=== PATIENT | male | born 1950 | race Caucasian/White ===

== ENCOUNTER 2024-07-31 06:47 | Day surgery (SDC) | payer OTHER ==
--- NOTE | 2024-07-19 10:45 | RAD REPORT ---
EXAMINATION: TWO VIEW CHEST XR CLINICAL INDICATION: Pre-op pending carpal tunnel release TECHNIQUE: 2 views of the chest was performed. COMPARISON: 03/16/2016 FINDINGS: The lungs are well inflated and clear. The heart is upper limit of normal in size. No displaced fract ures evident.
== END 2024-07-31 07:23 | disposition home or self-care (01) ==
LOC: OR 06:47
PROVIDERS: ATTEND Orthopaedic Surgery Sports Medicine
DX: G56.01 Carpal tunnel syndrome, right upper limb (principal); Z53.09 Procedure and treatment not carried out because of other contraindication
CPT/HCPCS: 71046

== ENCOUNTER 2024-11-27 06:52 | Day surgery (SDC) | payer OTHER ==
[2024-11-25 10:25] LABS: Absolute Lymphocytes (CBC) 1.3 K/uL (0.7-4.9); Hematocrit 48.3 % (39.6-49.0); Hemoglobin 16.8 g/dL (13.6-17.9); MCH 31.1 pg (27.0-35.0); MCHC 34.7 g/dL (32.0-36.0); MCV 89.5 fL (80-100); MPV 7.5 fL (7.6-11.3); Nucleated RBC Absolute Count 0.0 (0-0); Nucleated Red Blood Cells % 0.0 % (0-0); RBC Red Blood Cell Count 5.39 M/uL (4.33-5.43); White Blood Count 6.10 thou/uL (4.3-10.9)
[2024-11-25 10:35] LABS: PT Prothrombin Time 10.9 SECONDS (10-13.0); PTT, Activated Partial Thromb 29.4 SECONDS (27.2-37.4); Protime INR 0.96
[2024-11-25 10:44] LABS: Anion Gap 6.4 mEq/L (5.0-15.0); BUN Blood Urea Nitrogen 18.0 mg/dL (7-18); Glucose Level 98.0 mg/dL (74-106); Potassium 4.4 mEq/L (3.5-5.1)
[2024-11-27] MEDS ORDERED: MIDAZOLAM HCL 2 MG/2 ML INJ ONE (07:16)
[2024-11-27] MEDS ORDERED: FENTANYL CITR 100 MCG/2 ML ONE (07:16)
[2024-11-27] MEDS ORDERED: KETOROLAC 30 MG/ML INJ ONE (07:16)
[2024-11-27] MEDS ORDERED: LIDOCAINE 1% MPF 5 ML VIAL ONE (07:16)
[2024-11-27] MEDS ORDERED: SUCCINYLCHOLINE 20 MG/ML (10 ML) IV ONE (07:31)
[2024-11-27] MEDS ORDERED: SUGAMMADEX SODIUM 200 MG/2 ML VIAL IV ONE (07:31)
[2024-11-27 07:44] VITALS: BP 156/67; TEMP 98.2; O2SAT 98
== END 2024-11-27 08:00 | disposition home or self-care (01) ==
LOC: OR 06:52
PROVIDERS: ATTEND Orthopaedic Surgery Sports Medicine
DX: G56.01 Carpal tunnel syndrome, right upper limb (principal); Z53.8 Procedure and treatment not carried out for other reasons
CPT/HCPCS: 85025; 80048; 36415; 85610; 85730; J0330; J2003; J2250; J2704; J3010